=== PATIENT | female | born 1955 | race Caucasian/White ===

== ENCOUNTER 2018-10-20 20:27 | Emergency (ER) | payer OTHER ==
--- NOTE | 2018-10-20 20:40 | ED Physician Documentation ---
History of Present Illness - Stated complaint Stated Complaint: RT SHOULDER PX - Chief complaint Chief Complaint: Ext Problem PD PAST MEDICAL HISTORY - Allergies Allergies/Adverse Reactions: Allergies Allergy/AdvReac Type Severity Reaction Status Date / Time cyclobenzaprine Allergy Unknown Verified 10/20/18 20:33 [From Flexeril] ibuprofen Allergy Unknown Verified 10/20/18 20:33 Results - Vitals Vitals: Vital Signs - 24 hr 10/20/18 20:30 Temperature 36.8 C Heart Rate 93 Respiratory 16 Rate Blood Pressure 142/80 H O2 Saturation 96 Oxygen O2 Source Room air
[2018-10-20] MEDS ORDERED: HYDROcod/ACET 5/325 Prepack 4 PO STA (20:49)
--- NOTE | 2018-10-20 20:52 | ED Physician Documentation ---
PD HPI UPPER EXT INJURY - Stated complaint Stated Complaint: RT SHOULDER PX - Chief complaint Chief Complaint: Ext Problem - History obtained from History obtained from: Patient - History of Present Illness Location: Right (63-year-old woman with known Rotator cuff issues on the right [place] with [place] pain of the right shoulder and limited range of motion. There is no specific injury. She has a copy of an MRI from August and shortly thereafter had a cortisone injection. She chronically takes tramadol for her fibromyalgia but that is insufficient for her right shoulder pain. No fevers.) Review of Systems Constitutional: reports: Reviewed and negative Nose: reports: Reviewed and negative Throat: reports: Reviewed and negative Cardiac: reports: Reviewed and negative PD PAST MEDICAL HISTORY - Present Medications Home Medications: Ambulatory Orders Medication Instructions Recorded Confirmed Hydrocodone/Acetaminophen 1 - 2 each PO Q6H PRN #14 tablet 10/20/18 [Hydrocodon-Acetaminophen 5-325] - Allergies Allergies/Adverse Reactions: Allergies Allergy/AdvReac Type Severity Reaction Status Date / Time cyclobenzaprine Allergy Unknown Verified 10/20/18 20:33 [From Flexeril] ibuprofen Allergy Unknown Verified 10/20/18 20:33 PD ED PE NORMAL - Vitals Vital signs reviewed: Yes - General General: Alert and oriented X 3, No acute distress - Extremities Extremities: Other (Mild tenderness of the right shoulder without Warmth. Passive range of motion is relatively painless and she has equal sensation over the deltoids and both sides of the forearms and hands. 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, thumb extension, and flexion extension of the wrist.) - Neuro Neuro: Alert and oriented X 3, Normal speech Results - Vitals Vitals: Vital Signs - 24 hr 10/20/18 20:30 Temperature 36.8 C Heart Rate 93 Respiratory 16 Rate Blood Pressure 142/80 H O2 Saturation 96 Oxygen O2 Source Room air Departure - Departure Disposition: 01 Home, Self Care Clinical Impression: Rotator cuff arthropathy of right shoulder Condition: Good Record reviewed to determine appropriate education?: Yes Instructions: ED Torn Rotator Cuff Prescriptions: Hydrocodone/Acetaminophen [Hydrocodon-Acetaminophen 5-325] 1 - 2 each PO Q6H PRN #14 tablet PRN Reason: pain Comments: As discussed wear the sling for no more than a couple of days and do the exercises as shown to maintain range of motion. Follow-up with your doctor on return home. Do not drink or drive while taking narcotic pain medication. Note that many narcotic pain relievers also contain Tylenol/acetaminophen. Please ensure that your total dose of acetaminophen from all sources does not exceed 3 g (3000 mg) per day. You may get constipated while on this medication. Take a stool softener such as Colace twice a day while you are on it. Also add an [id number] laxative such as senna or MiraLAX on any day that you do not have a bowel movement. If you received a narcotic pain medication or sedative while in the emergency department, do not drive for the next 24 hours.
[2018-10-20 21:03] VITALS: BP 132/86
== END 2018-10-20 21:05 | disposition home or self-care (01) ==
LOC: ED 20:27
DX: M12.811 Other specific arthropathies, not elsewhere classified, right shoulder (principal)
CPT/HCPCS: 99283